=== PATIENT | female | born 1970 | race African-American/Black ===

== ENCOUNTER 2017-08-01 11:36 | Outpatient (CLI) ==
[2015-08-01 20:36] VITALS: BMI 51.2
--- NOTE | 2017-08-01 12:41 | US ---
Exam: Chappell-scale and color ultrasonographic evaluation of the right lower extremity soft tissues. Reason for exam: Cellulitis. Comparison: None available. FINDINGS: Heterogeneous appearing soft tissue is seen overlying the area of patient concern measurin g approximately 1.8 x 1.0 x 1.2 cm. No discrete fluid collection is seen. There is increased vascularity seen in this region. Impression: Imaging findings are most consistent with cellulitis/phlegmon without a discrete drainable fluid shelby ection. If clinical concern exists for developing abscess formation, follow-up imaging is recommended .
== END 2017-08-01 11:37 | disposition home or self-care (01) ==
LOC: RAD 11:36
PROVIDERS: ATTEND Family Medicine
DX: L03.90 Cellulitis, unspecified (principal); T14.8XXA Other injury of unspecified body region, initial encounter
CPT/HCPCS: 76882